=== PATIENT | male | born 1930 | race Caucasian/White ===

== ENCOUNTER 2018-03-17 20:19 | Emergency (ER) | payer OTHER ==
[~2018-03-17] VITALS: Ht 175.2 cm; Wt 90.7 kg
--- NOTE | ~2018-03-17 | EKG ---
[place], [place] ELECTROCARDIOGRAM REPORT NAME: EMMANUEL VELASQUEZ UNIT #: [id number] ROOM: DOCTOR: EPIPHANY DRAFT REPORT BIRTHDATE: [birth year] [facility] Test Date: 2018-03-17 Test Time: 20:48:40 Pat Name: EMMANUEL VELASQUEZ Department: Room: Gender: M Corset Maker: Alejandra Edward : 1930 Requested By: RANDEE KATHLEEN Order Number: [id number] Reading MD: Scott Davis MD Measurements Intervals [place] Rate: 63 P: 52 IL: 164 QRS: -16 QRSD: 82 T: 58 QT: 371 QTc: 380 Interpretive Statements Sinus rhythm Atrial premature complexes Consider left atrial enlargement Abnormal R-wave progression, late transition Left ventricular hypertrophy Compared to ECG 03/06/2018 19:42:18 Atrial premature complex(es) now present Left ventricular hypertrophy now present Electronically Signed On 03-20-2018 5:29:04 PST by Scott Davis MD CM:EKGRPT:ELECTROCARDIOGRAM REPORT [id number] RANDEE KAPOOR DRAFT REPORT RANDEE KATHLEEN DO
[~2018-03-17 20:19] MED LIST: AMLODIPINE BES2.5 MG PO; AMLODIPINE5 MG PO; ASPIR 8181 MG PO; B12-METHYL1000 MCG PO; BEE POLLEN PO; CARVEDILOL3.125 MG PO; CARVEDILOL6.25 MG PO; COQ10-VIT E 101 EACH PO; CRESTOR20 MG PO; CRESTOR5 MG PO; CYCLOBENZAPRINE5 MG PO; DONNATAL1 CA1 PO; ELIQUIS5 M1 PO; FISH OIL 10001000 MG PO; FLAGYL500 MG PO; KRILL OIL 3001 EACH PO; LEVAQUIN500 M1 PO; LEVOFLOXACIN500 MG PO; LIPITOR40 MG PO; MEGA RED; METOPROLOL25 MG PO; NEURONTIN300 MG PO; PERCOCET 325 MG1 TA2 PO; PROTONIX40 MG PO; SUNMARK OMEPRAZ20 M1 PO; SYNTHROID,LEVO25 MCG PO; VISTARIL25 MG PO; VITAMIN D1000 IU PO; VITAMIN D31000 IU PO; ZANTAC150 MG PO; ZOLOFT25 MG PO
[2018-03-17 20:22] VITALS: BP 157/83
[2018-03-17 20:51] LABS: BASO # 0.1 10*3/uL (0.0-0.1); BASO % 0.4 % (0.0-1.0); EOS # 0.7 10*3/uL (0.0-0.4); EOS % 5.4 % (1.0-4.0); HEMOGLOBIN 15.9 g/dl (14.0-18.0); LYMPH # 3.8 10*3/uL (1.3-4.4); LYMPH % 29.6 % (27.0-41.0); MEAN CELL VOLUME 94.9 fl (80.0-94.0); MEAN CORPUSCULAR HGB 32.1 pg (27.0-31.0); MEAN CORPUSCULAR HGB CONC 33.8 g/dl (33.0-37.0); MEAN PLATELET VOLUME 10.3 fl (9.6-12.3); MONO % 7.9 % (3.0-9.0); NEUT # 7.2 10*3/uL (2.3-7.9); NEUT % 56.3 % (47.0-73.0); PLATELET COUNT AUTOMATED 208 10*3/uL (130-400); RED BLOOD COUNT 4.95 10*6/uL (4.50-5.90); RED CELL DISTRI WIDTH 13.6 % (0-14.5); WHITE BLOOD COUNT 12.7 10*3/uL (4.8-10.8)
[2018-03-17 21:13] LABS: ALBUMIN 3.4 gm/dl (3.1-4.5); ALKALINE PHOSPHATASE 76 U/L (45-117); BUN 21 mg/dl (7-24); CHLORIDE 107 mmol/L (98-107); POTASSIUM 3.9 mmol/L (3.5-5.1); SGOT/AST 22 IU/L (3-35); SGPT/ALT 27 U/L (12-78); SODIUM 138 mmol/L (136-145); TOTAL PROTEIN 7.3 gm/dL (6.4-8.2)
[2018-03-17 21:16] LABS: BILIRUBIN NEGATIVE (NEGATIVE); BLOOD NEGATIVE (NEGATIVE); CLARITY CLEAR (CLEAR); COLOR YELLOW (YELLOW); GLUCOSE NEGATIVE (NEGATIVE); KETONE NEGATIVE (NEGATIVE); LEUKO ESTERASE NEGATIVE (NEGATIVE); NITRITE NEGATIVE (NEGATIVE); PH 6.5 (5.0-9.0); SPECIFIC GRAVITY <= 1.005 (1.005-1.030); UROBILINOGEN 0.2 E.U./dl (0.2-1.0)
[2018-03-17 21:16] LABS: TROPONIN I < 0.015 ng/ml (<0.045)
[2018-03-17 21:36] LABS: BACTERIA TRACE
[2018-03-17 21:52] LABS: ACT PARTIAL THROMBO TIME 22.3 SECONDS (20.8-31.5)
== END 2018-03-17 22:36 | disposition home or self-care (01) ==
LOC: ED 20:19
PROVIDERS: Student in an Organized Health Care Education/Training Program
DX: R11.0 Nausea (principal); R10.9 Unspecified abdominal pain; N18.3 Chronic kidney disease, stage 3 (moderate); E78.5 Hyperlipidemia, unspecified; Z88.2 Allergy status to sulfonamides; Z79.899 Other long term (current) drug therapy; Z86.711 Personal history of pulmonary embolism

== ENCOUNTER → 2018-04-18 | Outpatient (CLI) | payer OTHER | END | disposition home or self-care (01) | LOC: US 13:00 | DX: I26.99 Other pulmonary embolism without acute cor pulmonale (principal); Z86.711 Personal history of pulmonary embolism ==

== ENCOUNTER 2018-09-15 08:18 | Emergency (ER) | payer OTHER ==
[~2018-09-15] VITALS: Ht 175.2 cm; Wt 92.5 kg
--- NOTE | ~2018-09-15 | EKG ---
[place], [place] ELECTROCARDIOGRAM REPORT NAME: EMMANUEL VELASQUEZ UNIT #: [id number] ROOM: DOCTOR: ZOYA DRAFT REPORT BIRTHDATE: [birth year] [facility] Test Date: 2018-09-15 Test Time: 08:56:43 Pat Name: EMMANUEL VELASQUEZ Department: Room: Gender: Podiatric Assistant: : 1930 Requested By: MORGAN HARO Order Number: [id number] Reading MD: Arlette Romano MD Measurements Intervals [place] Rate: 68 P: 49 MN: 170 QRS: -18 QRSD: 87 T: 42 QT: 394 QTc: 420 Interpretive Statements Sinus rhythm Left ventricular hypertrophy Compared to ECG 07/28/2018 19:41:15 No significant changes Electronically Signed On 09-19-2018 12:02:58 PDT by Arlette Romano MD CM:EKGRPT:ELECTROCARDIOGRAM REPORT [id number] MORGAN KENNY DRAFT REPORT MORGAN HARO M.D.
[~2018-09-15 08:18] MED LIST changes: +ZANTAC 150150 MG PO
[2018-09-15 08:19] VITALS: BP 144/92
[2018-09-15 08:56] LABS: BASO # 0.1 10*3/uL (0.0-0.1); BASO % 0.4 % (0.0-1.0); EOS # 0.6 10*3/uL (0.0-0.4); EOS % 4.7 % (1.0-4.0); HEMATOCRIT 46.5 % (42.0-52.0); HEMOGLOBIN 15.5 g/dl (14.0-18.0); LYMPH # 3.1 10*3/uL (1.3-4.4); LYMPH % 25.5 % (27.0-41.0); MEAN CELL VOLUME 97.3 fl (80.0-94.0); MEAN CORPUSCULAR HGB 32.4 pg (27.0-31.0); MEAN CORPUSCULAR HGB CONC 33.3 g/dl (33.0-37.0); MEAN PLATELET VOLUME 10.4 fl (9.6-12.3); MONO # 0.9 10*3/uL (0.1-1.0); MONO % 7.1 % (3.0-9.0); NEUT # 7.4 10*3/uL (2.3-7.9); PLATELET COUNT AUTOMATED 176 10*3/uL (130-400); RED BLOOD COUNT 4.78 10*6/uL (4.50-5.90); RED CELL DISTRI WIDTH 13.9 % (0-14.5)
[2018-09-15 09:12] LABS: ALBUMIN 3.7 gm/dl (3.1-4.5); CREATININE 1.48 mg/dL (0.70-1.30); POTASSIUM 4.6 mmol/L (3.5-5.1); TOTAL PROTEIN 7.1 gm/dL (6.4-8.2)
[2018-09-15] MEDS ORDERED: ELIQUIS5 M1 PO (22:04)
[2018-09-15] MEDS ORDERED: COQ1050 MG PO (22:05)
[2018-10-23] MEDS ORDERED: ZOLOFT50 MG PO (14:02)
[2018-10-23] MEDS ORDERED: PROTONIX40 MG PO (14:03)
[2018-10-23] MEDS ORDERED: CARAFATE1 G1 PO (14:03)
[2018-10-23] MEDS ORDERED: CRESTOR40 M1 PO (14:04)
== END 2018-09-15 10:00 | disposition home or self-care (01) ==
LOC: ED 08:18
PROVIDERS: Emergency Medicine
DX: K29.70 Gastritis, unspecified, without bleeding (principal); E78.5 Hyperlipidemia, unspecified; N18.3 Chronic kidney disease, stage 3 (moderate); G62.9 Polyneuropathy, unspecified; Z79.899 Other long term (current) drug therapy; Z88.2 Allergy status to sulfonamides

== ENCOUNTER 2018-09-15 15:10 | Inpatient (IN) | payer OTHER ==
[~2018-09-15] VITALS: Ht 175.3 cm; Wt 99.4 kg
[2018-09-15] VITALS (7 sets, daily range): BP systolic 123–173; BP diastolic 67–91
[2018-09-15 20:22] LABS: BASO % 0.3 % (0.0-1.0); EOS # 0.4 10*3/uL (0.0-0.4); EOS % 3.1 % (1.0-4.0); HEMATOCRIT 47.1 % (42.0-52.0); HEMOGLOBIN 15.6 g/dl (14.0-18.0); LYMPH # 3.4 10*3/uL (1.3-4.4); LYMPH % 24.1 % (27.0-41.0); MEAN CELL VOLUME 95.7 fl (80.0-94.0); MEAN CORPUSCULAR HGB 31.7 pg (27.0-31.0); MEAN CORPUSCULAR HGB CONC 33.1 g/dl (33.0-37.0); MONO % 6.7 % (3.0-9.0); NEUT # 9.3 10*3/uL (2.3-7.9); NEUT % 65.4 % (47.0-73.0); PLATELET COUNT AUTOMATED 183 10*3/uL (130-400); RED BLOOD COUNT 4.92 10*6/uL (4.50-5.90); RED CELL DISTRI WIDTH 13.6 % (0-14.5); WHITE BLOOD COUNT 14.3 10*3/uL (4.8-10.8)
--- NOTE | 2018-09-15 20:27 | NUR ---
ATTEMPTED TO CALL TO MAKE NURSE AWARE OF ADMISSION
[2018-09-15 20:37] LABS: ALBUMIN 3.7 gm/dl (3.1-4.5); ALKALINE PHOSPHATASE 74 U/L (45-117); BUN 19 mg/dl (7-24); CHLORIDE 107 mmol/L (98-107); LIPASE 124 U/L (73-393); POTASSIUM 4.1 mmol/L (3.5-5.1); SGOT/AST 22 IU/L (3-35); SGPT/ALT 34 U/L (12-78); SODIUM 140 mmol/L (136-145); TOTAL PROTEIN 7.3 gm/dL (6.4-8.2)
--- NOTE | 2018-09-15 20:45 | NUR ---
A 88, admitted to 4E, under the services of GUILLERMO Chavez DO with a diagnosis of SIGMOID DIVERTICULOSIS, ABD PAIN. Chief complaint is C/O ABD PAIN WAS SEEN IN ER EARLIER TODAY AND HAD GI COCKTAIL AND SENT HOME ONLY TO RETURN LATER TONIGHT WITH RECURRECT ABD PAIN DENIES NAUSEA.. Patient arrived via stretcher from ER. Monitor applied. Initial assessment completed. patient in extreme pain just from moving from cart to bed. HAD TO DELAY COMPLETING ADMISSION BECAUSE PATIENT EXTREME PAIN. GUILLERMO CHAVEZ DO notified of admission to the unit. JHONATAN LEONARDO J
--- NOTE | 2018-09-15 20:59 | NUR ---
CALLED DR. SALOMON AND NOTIFIED HIM PATIENT IN EXTREME PAIN, ROCKING IN BED, CAN'T SIT STILL SAYING "IT'S MY ULCER, I CAN'T TAKE THIS! YOU GOT TO DO SOMETHING!" ORDER BEING PUT IN FOR GI COCTAIL AND MORE DILAUDID.
--- NOTE | 2018-09-15 21:15 | NUR ---
PULLED MEDICATION FROM [employer] FOR PATIENTS PAIN WHEN DAUGHTER CAME BACK TO DESK CRYING STATED "HE'S NEVER BEEN IN SO MUCH PAIN. HE BACK THERE WANTING TO !" CALLED DR. SALOMON AND NOTIFIED HIM OF PATIENT CONDITION AND DAUGHTER WANTING DOCTOR TO COME SEE PATIENT. MEDICATION TAKEN BACK TO ROOM AND PATIENT WAS LAYING AND SITTING STANDING, SCREAMING SHAKING HIS FISTS AND CRYING "GOD JUST TAKE ME NOW I CAN'T STAND IT" AND PATIENT THREW HIMSELF DOWN ON THE BED AND CRYING AND GRABBING STOMACHE. HAD TO GET PATIENT TO LOOK AT ME AND DRINK THE MEDICATION WITH SOME PROMPTING. TALKED SOFTLY AND CAMLY TO PATIENT TO HELP HIM CALM DOWN. FINALLY PATIENT CALMED AND BEGAN TO SPEAK RATIONALLY. VITAL SIGNS TAKEN HR 109 BP 161/91 PT. PAIN IN MID STERNAL EPIGASTRIC PAIN SUBSIDED AND PATIENT WAS ABLE TO LAY BACK IN BED AND CALM. DR. SALOMON CAME TO ROOM AND WAS NOTIFIED OF PATIENT BEHAVIOR. FEEL PATIENT HAD REACTION TO DILAUDID AND WAS NOT GIVEN THIS FOR PAIN. LISTED DILAUDID ALLERGY. TOOK VITAL SIGNS AGAIN AFTER PATIENT CALMED AND HR 70 AND BP 123/67. PT. RESTING QUIETLY IN BED.
[2018-09-15] MEDS ORDERED: ELIQUIS5 M1 PO (22:04)
[2018-09-15] MEDS ORDERED: COQ1050 MG PO (22:05)
[2018-09-16] VITALS: BP 104/51
[2018-09-16 05:28] LABS: BASO % 0.2 % (0.0-1.0); EOS # 0.4 10*3/uL (0.0-0.4); EOS % 3.1 % (1.0-4.0); HEMATOCRIT 44.8 % (42.0-52.0); HEMOGLOBIN 14.9 g/dl (14.0-18.0); LYMPH # 3.2 10*3/uL (1.3-4.4); LYMPH % 26.2 % (27.0-41.0); MEAN CELL VOLUME 97.4 fl (80.0-94.0); MEAN CORPUSCULAR HGB 32.4 pg (27.0-31.0); MEAN CORPUSCULAR HGB CONC 33.3 g/dl (33.0-37.0); MEAN PLATELET VOLUME 10.2 fl (9.6-12.3); MONO # 0.9 10*3/uL (0.1-1.0); MONO % 7.6 % (3.0-9.0); NEUT # 7.7 10*3/uL (2.3-7.9); NEUT % 62.6 % (47.0-73.0); PLATELET COUNT AUTOMATED 161 10*3/uL (130-400); RED CELL DISTRI WIDTH 13.8 % (0-14.5); WHITE BLOOD COUNT 12.3 10*3/uL (4.8-10.8)
[2018-09-16 05:48] LABS: BUN 19 mg/dl (7-24); CHLORIDE 108 mmol/L (98-107); PHOSPHOROUS 3.4 mg/dL (2.5-4.9); POTASSIUM 4.4 mmol/L (3.5-5.1); SODIUM 143 mmol/L (136-145)
[2018-09-16 08:00] VITALS: BP 136/66
--- NOTE | 2018-09-16 08:32 | NUR ---
IN TO SEE PATIENT.
[2018-09-16 08:51] LABS: VITAMIN D, 25-HYDROXY 39.9 ng/mL (30-100)
--- NOTE | 2018-09-16 09:12 | NUR ---
IV PHENERGAN INFUSING PER ORDER FOR C/O NAUSEA. WILL MONITOR EFFECTIVENESS.
--- NOTE | 2018-09-16 09:20 | NUR ---
NOTIFIED OF CONSULT.
--- NOTE | 2018-09-16 10:15 | NUR ---
IV PHENERGAN EFFECTIVE AT THIS TIME. WILL CONTINUE TO MONITOR.
[2018-09-16 12:00] VITALS: BP 119/66
[2018-09-16 16:00] VITALS: BP 102/55
--- NOTE | 2018-09-16 17:49 | NUR ---
PATIENT CONTINUES TO REST QUIETLY. NO VOICED COMPLAINTS. DENIES ANY ABD PAIN. DENIES ANY N/V. WILL CONTINUE TO MONITOR.
[2018-09-16 20:00] VITALS: BP 99/51
[2018-09-16 21:19] VITALS: BP 106/60
[2018-09-17] VITALS: BP 94/50
[2018-09-17 06:16] LABS: BASO % 0.3 % (0.0-1.0); EOS # 0.6 10*3/uL (0.0-0.4); EOS % 5.1 % (1.0-4.0); HEMATOCRIT 42.2 % (42.0-52.0); HEMOGLOBIN 13.8 g/dl (14.0-18.0); LYMPH # 3.1 10*3/uL (1.3-4.4); MEAN CELL VOLUME 97.9 fl (80.0-94.0); MEAN CORPUSCULAR HGB CONC 32.7 g/dl (33.0-37.0); MEAN PLATELET VOLUME 10.8 fl (9.6-12.3); MONO % 8.8 % (3.0-9.0); NEUT # 6.7 10*3/uL (2.3-7.9); NEUT % 58.5 % (47.0-73.0); PLATELET COUNT AUTOMATED 151 10*3/uL (130-400); RED BLOOD COUNT 4.31 10*6/uL (4.50-5.90); RED CELL DISTRI WIDTH 13.9 % (0-14.5); WHITE BLOOD COUNT 11.4 10*3/uL (4.8-10.8)
[2018-09-17 06:37] LABS: ALBUMIN 3.2 gm/dl (3.1-4.5); CREATININE 1.55 mg/dL (0.70-1.30); POTASSIUM 3.7 mmol/L (3.5-5.1); TOTAL PROTEIN 5.8 gm/dL (6.4-8.2)
[2018-09-17 06:59] VITALS: BP 118/78
[2018-09-17 08:00] VITALS: BP 104/66
--- NOTE | 2018-09-17 09:00 | NUR ---
Newspaper Publisher in to talk to patient. Patient states lives at home with . There are few steps in the home. Physician: resident clinic [facility]acy: [facility] services: none Patient's level of ADLs: MINIMAL ASSIST Patient has working utilities: all working DME: Follow-up physician's appointment after d/c: will be made by hospitalist nurse director upon discharge Does patient want to access PORTAL?: no Discharge plan discussed with patient, patient lives at home with , he is using a cane for ambulation, patient states he will be going home when able and denies any home needs, case management will follow. DOLLY DANIELSON
--- NOTE | 2018-09-17 10:23 | NUR ---
DR RAMIREZ CALLED WITH CRP RESULT REQUESTED- NO ANSWER, WILL RETRY LATER.
--- NOTE | 2018-09-17 11:10 | NUR ---
CALLED INTO ROOM BY PATIENT. IV INFILTRATED DURING CIPRO INFUSION. RIGHT HAND EDEMA AND RED. IV DISCONTINUED AND ICE APPLIED. WILL MONITOR.
--- NOTE | 2018-09-17 11:20 | NUR ---
PATIENT REFUSES TO HAVE NEW IV PLACED.
--- NOTE | 2018-09-17 11:25 | NUR ---
DR RIBEIRO CALLED AND MADE AWARE OF IV INFILTRATION AND PATIENT REFUSING A NEW IV. OK NOT TO INSERT AN IV AT THIS TIME.
[2018-09-17 12:00] VITALS: BP 113/60
--- NOTE | 2018-09-17 12:26 | NUR ---
SPOKE WITH DR RAMIREZ ABOUT PATIENT AND CRP LEVEL ORDERED. WANT TO DO COLO TODAY. PREP WITH FLEETS AND TAP WATER ENEMA.
--- NOTE | 2018-09-17 12:40 | NUR ---
SPOKE WITH PATIENT ABOUT HAVING A COLOSCOPY DONE. PATIENT REFUSES TO HAVE PROCEDURE PERFORMED, AND ALSO TO HAVE EGD PERFORMED.
--- NOTE | 2018-09-17 14:10 | NUR ---
PATIENTS HAND STILL EDEMADOUS, BUT SMALLER THAN IT WAS. NO LONGER RED. PATIENT STILL HAS ICE ON HAND. CONTINUES TO REFUSE A NEW IV, EGD, AND COLO. WILL MONITOR.
--- NOTE | 2018-09-17 14:56 | NUR ---
CALLED DR RIBEIRO, PATIENT WANTS DISCHARGED AND TO FOLLOW UP WITH HIS GI DR, DR KOENIG. PATIENT CONTINUES TO REFUSE IV,EGD, AND COLO. WAITING FOR CALL BACK.
--- NOTE | 2018-09-17 15:07 | NUR ---
SPOKE WITH PATIENT ABOUT DR NOT DISCHARGING HIM BUT THAT HE IS ABLE TO LEAVE AMA. PATIENT DOES NOT WANT TO DO THAT. STATES HE WILL FOLLOW UP WITH DR KOENIG OUTPATIENT. AGREEABLE FOR NEW IV AND ANTIBIOTICS BUT STILL REFUSING EGD AND COLO. WILL FOLLOW UP WITH
--- NOTE | 2018-09-17 15:11 | NUR ---
PATIENT STATES THAT HE DOES NOT WANT TO SIGN OUT AMA AND BE STUCK PAYING THE HOSPITAL BILL. IS AGREEABLE TO IV ANF ANTIBIOTICS BUT STILL REFUSING EGD AND COLO. DR RIBEIRO CALLED- SHE WILL BE UP TO SPEAK WITH PATIENT.
[2018-09-17 16:00] VITALS: BP 103/56
[2018-09-17 20:00] VITALS: BP 113/62
[2018-09-18] VITALS: BP 108/64
--- NOTE | 2018-09-18 04:00 | NUR ---
PT ASLEEP IN BED AT THIS TIME WITH NO S/S OF PAIN OR DISTRESS. RESPIRATIONS EASY AND NONLABORED. SAFETY MEASURES IN PLACE. WILL CONTINUE TO MONITOR PT.
[2018-09-18 06:19] LABS: BASO # 0.1 10*3/uL (0.0-0.1); BASO % 0.6 % (0.0-1.0); EOS # 0.8 10*3/uL (0.0-0.4); EOS % 7.9 % (1.0-4.0); HEMATOCRIT 42.6 % (42.0-52.0); HEMOGLOBIN 13.8 g/dl (14.0-18.0); LYMPH # 2.5 10*3/uL (1.3-4.4); LYMPH % 26.1 % (27.0-41.0); MEAN CELL VOLUME 97.7 fl (80.0-94.0); MEAN CORPUSCULAR HGB 31.7 pg (27.0-31.0); MEAN CORPUSCULAR HGB CONC 32.4 g/dl (33.0-37.0); MEAN PLATELET VOLUME 10.2 fl (9.6-12.3); MONO # 0.9 10*3/uL (0.1-1.0); MONO % 9.4 % (3.0-9.0); NEUT # 5.3 10*3/uL (2.3-7.9); NEUT % 55.7 % (47.0-73.0); PLATELET COUNT AUTOMATED 148 10*3/uL (130-400); RED BLOOD COUNT 4.36 10*6/uL (4.50-5.90); RED CELL DISTRI WIDTH 13.8 % (0-14.5); WHITE BLOOD COUNT 9.5 10*3/uL (4.8-10.8)
[2018-09-18 06:53] LABS: CREATININE 1.49 mg/dL (0.70-1.30); POTASSIUM 3.8 mmol/L (3.5-5.1)
--- NOTE | 2018-09-18 07:30 | NUR ---
May convert IV metronidazole to PO if clinically feasible -- all criteria met. Thanks, [place] Vyas, PharmD, [facility]
[2018-09-18 08:00] VITALS: BP 132/78
--- NOTE | 2018-09-18 09:00 | NUR ---
case management visits with patient, patient up ambulating in room per self. patient states he will be going home when able and denies any home needs
--- NOTE | 2018-09-18 11:43 | NUR ---
PHYSICAL THERAPY PAtient to be discharged this date. Thank you for this referral. Dulce Scott,PT
--- NOTE | 2018-09-18 12:05 | NUR ---
DISCHARGE INSTRUCTIONS REVIEWED WITH PATIENT AND . HEPLOCK DISCONTINUED. FOLLOW UP CARE DISCUSSED. PT TRANSPORTED OFF THE FLOOR VIA WHEELCHAIR TO PRIVATE CAR.
--- NOTE | 2018-09-18 15:03 | NUR ---
Patient discharged this date before OT evaluation could be completed. Thank you. Nelia Mccray OTR/L
[2018-10-23] MEDS ORDERED: ZOLOFT50 MG PO (14:02)
[2018-10-23] MEDS ORDERED: PROTONIX40 MG PO (14:03)
[2018-10-23] MEDS ORDERED: CARAFATE1 G1 PO (14:03)
[2018-10-23] MEDS ORDERED: CRESTOR40 M1 PO (14:04)
== END 2018-09-18 12:05 | disposition home or self-care (01) | DRG 392 ==
LOC: ED 15:10 → 4E 20:05 → EDHOLD 20:05 → 4E 20:27
PROVIDERS: Emergency Medicine Emergency Medical Services; Internal Medicine; ADMIT Emergency Medicine
DX: K52.9 Noninfective gastroenteritis and colitis, unspecified (principal); K27.9 Peptic ulcer, site unspecified, unspecified as acute or chronic, without hemorrhage or perforation; K57.30 Diverticulosis of large intestine without perforation or abscess without bleeding; E78.5 Hyperlipidemia, unspecified; K29.50 Unspecified chronic gastritis without bleeding; D72.825 Bandemia; R73.03 Prediabetes; I70.90 Unspecified atherosclerosis; G62.9 Polyneuropathy, unspecified; Z53.29 Procedure and treatment not carried out because of patient's decision for other reasons; N18.3 Chronic kidney disease, stage 3 (moderate); Z86.711 Personal history of pulmonary embolism; Z88.8 Allergy status to other drugs, medicaments and biological substances; Z88.6 Allergy status to analgesic agent; Z88.2 Allergy status to sulfonamides; Z09 Encounter for follow-up examination after completed treatment for conditions other than malignant neoplasm; Z95.5 Presence of coronary angioplasty implant and graft; I25.2 Old myocardial infarction; Z95.0 Presence of cardiac pacemaker; Z82.49 Family history of ischemic heart disease and other diseases of the circulatory system; Z79.899 Other long term (current) drug therapy

== ENCOUNTER → 2018-10-26 | Day surgery (SDC) | payer OTHER ==
[~2018-10-26] VITALS: Ht 175.2 cm; Wt 90.7 kg
[~2018-10-26] MED LIST changes: +CARAFATE1 G1 PO; +COQ1050 MG PO; +CRESTOR40 M1 PO; +ZOLOFT50 MG PO
--- NOTE | ~2018-10-26 | O ---
[place], [place] OPERATIVE NOTE NAME: EMMANUEL VELASQUEZ [facility] #: [id number] UNIT #: [id number] ROOM: DOCTOR: RAUL KOENIG MD BIRTHDATE: [birth year] DOS: 10/26/2018 PROCEDURE: Esophagogastroduodenoscopy and biopsy. INDICATION: Abdominal pain. Informed consent was obtained from the patient after indication of procedure, the alternatives and potential complications were explained to him. PROCEDURE MEDICATION: Sedation was administered by Anesthesiology Department. Scope used was Olympus diagnostic adult upper endoscope GIF-180, depth of insertion was to the descending duodenum. FINDINGS: After adequate sedation, the patient was placed in left lateral decubitus position, scope was introduced under direct visualization through the upper esophageal sphincter into the esophagus. Esophageal mucosa appeared normal with no ulcerations or strictures. Lower esophageal sphincter was identified at 38 cm from incisors, normal appearing Z line. Stomach was then intubated. Gastric mucosa inspected. Moderate severe gastritis was noted, more so in the antrum and a JOSETTE test was performed from the antrum and biopsy. Retroflexed views in the fundus were unremarkable. The pylorus was intubated easily. The duodenal bulb and descending duodenum were within normal range. Scope was then withdrawn after the stomach was decompressed. The patient tolerated the procedure well. IMPRESSION: 1. Gastritis, JOSETTE test performed. 2. Normal upper GI tract, otherwise. PLAN: We will review the JOSETTE test results, treat the patient accordingly. Office followup will be scheduled in 2-3 weeks. RAUL KOENIG MD CM:OPRECORD:OPERATIVE NOTE [id number] RAUL KOENIG MD 10/26/18 1308 interface
[2018-10-26 07:50] VITALS: BP 121/63
[2018-10-26 09:03] VITALS: BP 102/45
[2018-10-26 09:15] VITALS: BP 97/58
[2018-10-26 09:33] VITALS: BP 114/66
== END | disposition home or self-care (01) ==
LOC: SDC 10-25 01:24
DX: K29.70 Gastritis, unspecified, without bleeding (principal); I10 Essential (primary) hypertension; I25.10 Atherosclerotic heart disease of native coronary artery without angina pectoris; I25.2 Old myocardial infarction; Z95.0 Presence of cardiac pacemaker; Z88.2 Allergy status to sulfonamides; Z88.8 Allergy status to other drugs, medicaments and biological substances; Z79.899 Other long term (current) drug therapy; Z98.890 Other specified postprocedural states

== ENCOUNTER 2019-03-14 14:39 | Emergency (ER) | payer OTHER ==
[~2019-03-14] VITALS: Wt 90.7 kg
[2019-03-14 15:24] LABS: BASO # 0.1 10*3/uL (0.0-0.1); BASO % 0.5 % (0.0-1.0); EOS % 8.1 % (1.0-4.0); HEMATOCRIT 48.5 % (42.0-52.0); HEMOGLOBIN 15.9 g/dl (14.0-18.0); LYMPH # 3.1 10*3/uL (1.3-4.4); LYMPH % 25.7 % (27.0-41.0); MEAN CELL VOLUME 96.2 fl (80.0-94.0); MEAN CORPUSCULAR HGB 31.5 pg (27.0-31.0); MEAN CORPUSCULAR HGB CONC 32.8 g/dl (33.0-37.0); MEAN PLATELET VOLUME 10.5 fl (9.6-12.3); MONO % 8.5 % (3.0-9.0); NEUT # 6.9 10*3/uL (2.3-7.9); NEUT % 56.9 % (47.0-73.0); PLATELET COUNT AUTOMATED 170 10*3/uL (130-400); RED BLOOD COUNT 5.04 10*6/uL (4.50-5.90); RED CELL DISTRI WIDTH 14.3 % (0-14.5); WHITE BLOOD COUNT 12.1 10*3/uL (4.8-10.8)
[2019-03-14 15:45] LABS: ALBUMIN 3.6 gm/dl (3.1-4.5); ALKALINE PHOSPHATASE 68 U/L (45-117); BUN 15 mg/dl (7-24); CHLORIDE 111 mmol/L (98-107); CREATININE 1.54 mg/dL (0.70-1.30); POTASSIUM 4.7 mmol/L (3.5-5.1); SGOT/AST 21 IU/L (3-35); SGPT/ALT 30 U/L (12-78); SODIUM 144 mmol/L (136-145); TOTAL PROTEIN 7.2 gm/dL (6.4-8.2)
[2019-03-14 15:46] LABS: TROPONIN I < 0.015 ng/ml (<0.045)
[2019-03-14 15:48] VITALS: BP 140/116
[2019-03-14 16:33] LABS: BILIRUBIN NEGATIVE (NEGATIVE); BLOOD NEGATIVE (NEGATIVE); CLARITY CLEAR (CLEAR); COLOR YELLOW (YELLOW); GLUCOSE NEGATIVE (NEGATIVE); KETONE NEGATIVE (NEGATIVE); LEUKO ESTERASE NEGATIVE (NEGATIVE); NITRITE NEGATIVE (NEGATIVE); SPECIFIC GRAVITY <= 1.005 (1.005-1.030); UROBILINOGEN 0.2 E.U./dl (0.2-1.0)
[2019-03-14] MEDS ORDERED: PLAVIX75 M1 PO (16:55)
[2019-03-14 17:04] LABS: INTERNATIONAL NORM RATIO 0.9 (2.0-3.5)
== END 2019-03-14 17:00 | disposition home or self-care (01) ==
LOC: ED 14:39
PROVIDERS: Emergency Medicine
DX: G45.9 Transient cerebral ischemic attack, unspecified (principal); I10 Essential (primary) hypertension; I25.2 Old myocardial infarction; E78.5 Hyperlipidemia, unspecified; G62.9 Polyneuropathy, unspecified; I12.9 Hypertensive chronic kidney disease with stage 1 through stage 4 chronic kidney disease, or unspecified chronic kidney disease; N18.3 Chronic kidney disease, stage 3 (moderate); Z88.8 Allergy status to other drugs, medicaments and biological substances; Z88.2 Allergy status to sulfonamides; Z88.6 Allergy status to analgesic agent; Z79.899 Other long term (current) drug therapy; Z95.0 Presence of cardiac pacemaker

== ENCOUNTER → 2019-09-04 | Outpatient (CLI) | payer OTHER ==
[~2019-09-04] MED LIST changes: +PLAVIX75 M1 PO
[2019-09-04 13:38] LABS: HEMATOCRIT 47.7 % (42.0-52.0); MEAN CELL VOLUME 97.1 fl (80.0-94.0); MEAN CORPUSCULAR HGB 31.6 pg (27.0-31.0); MEAN CORPUSCULAR HGB CONC 32.5 g/dl (33.0-37.0); MEAN PLATELET VOLUME 10.3 fl (9.6-12.3); RED BLOOD COUNT 4.91 10*6/uL (4.50-5.90); RED CELL DISTRI WIDTH 14.5 % (0-14.5); WHITE BLOOD COUNT 14.3 10*3/uL (4.8-10.8)
== END | disposition home or self-care (01) ==
LOC: LAB 11:26 → US 11:26
PROVIDERS: Nurse Practitioner Family
DX: I12.9 Hypertensive chronic kidney disease with stage 1 through stage 4 chronic kidney disease, or unspecified chronic kidney disease (principal); N18.9 Chronic kidney disease, unspecified; I73.9 Peripheral vascular disease, unspecified; R73.01 Impaired fasting glucose; D72.829 Elevated white blood cell count, unspecified

== ENCOUNTER → 2019-09-19 | Outpatient (CLI) | payer OTHER | END | disposition home or self-care (01) | LOC: RAD 13:12 | DX: D72.829 Elevated white blood cell count, unspecified (principal) ==

== ENCOUNTER 2019-12-09 09:23 | Observation (INO) | payer OTHER ==
[2019-12-09] VITALS (7 sets, daily range): BP systolic 101–165; BP diastolic 55–76
[~2019-12-09] VITALS: Ht 175.3 cm; Wt 91.6 kg
[2019-12-09 09:53] LABS: BASO # 0.1 10*3/uL (0.0-0.1); BASO % 0.4 % (0.0-1.0); EOS # 0.9 10*3/uL (0.0-0.4); EOS % 7.2 % (1.0-4.0); HEMATOCRIT 48.2 % (42.0-52.0); LYMPH # 2.6 10*3/uL (1.3-4.4); LYMPH % 21.9 % (27.0-41.0); MEAN CELL VOLUME 92.7 fl (80.0-94.0); MEAN CORPUSCULAR HGB 30.6 pg (27.0-31.0); MEAN PLATELET VOLUME 10.3 fl (9.6-12.3); MONO # 0.8 10*3/uL (0.1-1.0); MONO % 6.9 % (3.0-9.0); NEUT # 7.4 10*3/uL (2.3-7.9); NEUT % 63.1 % (47.0-73.0); PLATELET COUNT AUTOMATED 173 10*3/uL (130-400); RED CELL DISTRI WIDTH 13.9 % (0-14.5); WHITE BLOOD COUNT 11.8 10*3/uL (4.8-10.8)
[2019-12-09 10:03] LABS: ACT PARTIAL THROMBO TIME 26.5 SECONDS (20.0-32.1)
[2019-12-09 10:09] LABS: ALBUMIN 3.6 gm/dl (3.1-4.5); ALKALINE PHOSPHATASE 64 U/L (45-117); BUN 23 mg/dl (7-24); CHLORIDE 108 mmol/L (98-107); LIPASE 100 U/L (73-393); POTASSIUM 3.8 mmol/L (3.5-5.1); SGOT/AST 22 IU/L (3-35); SGPT/ALT 34 U/L (12-78); SODIUM 140 mmol/L (136-145); TOTAL PROTEIN 7.1 gm/dL (6.4-8.2); TROPONIN I < 0.015 ng/ml (<0.045)
--- NOTE | 2019-12-09 13:30 | NUR ---
A 89, admitted to 5E, under the services of ANABELL Rojas DO with a diagnosis of VERTIGO. Chief complaint is DIZZY. Patient arrived via stretcher from ER. Monitor applied. Initial assessment completed. Vital signs taken and recorded. ANABELL ROJAS DO notified of admission to the unit. Orders received. See assessment for past medical history, medications and allergies. Patient and/or family oriented to unit. [facility] visitation policy reviewed. Clothing/patient valuable form completed. RUSTY GAN
[2019-12-09] MEDS ORDERED: ZOLOFT50 MG PO (14:24)
--- NOTE | 2019-12-09 14:28 | NUR ---
PT MED REC UP TO DATE PER PT . DR ROBERSON NOTIFIED
--- NOTE | 2019-12-09 15:30 | NUR ---
PT RESTING IN BED. RESPS EASY AND NON LABORED. NO S/S OF DISTRESS NOTED.VSS. WHITE BOARD UPDATED. WILL CONTINUE TO MONITOR. CALL LIGHT WITHIN REACH.
--- NOTE | 2019-12-09 16:11 | NUR ---
ORTHOS 114/60, 82 BPM LAYING 138/74, 93 BPM SITTING 108/54, 90BPM CORDELL
--- NOTE | 2019-12-09 16:13 | NUR ---
DR ROBERSON NOTIFIED OF ORTHO RESULTS. NO NEW ORDERS AT THIS TIME.
[2019-12-09 16:27] LABS: BILIRUBIN NEGATIVE; BLOOD NEGATIVE (NEGATIVE); CLARITY CLEAR (CLEAR); COLOR YELLOW (YELLOW); GLUCOSE NEGATIVE; KETONE NEGATIVE; LEUKO ESTERASE NEGATIVE (NEGATIVE); NITRITE NEGATIVE (NEGATIVE); PH 7.5 (4.5-8.0); UROBILINOGEN 0.2 E.U./dl (0.0-1.0)
[2019-12-09 16:30] LABS: EPITHELIAL CELLS 0-2; RBC 0-2 rbc/hpf (0-2); WBC 0-2 wbc/hpf (0-5)
[2019-12-10] VITALS: BP 108/57
--- NOTE | 2019-12-10 01:24 | NUR ---
SPOKE WITH DR DE LA O REGARDING PT REQUEST FOR "SOMETHING TO HELP WITH DIZZINESS"
[2019-12-10 06:44] LABS: BASO # 0.1 10*3/uL (0.0-0.1); BASO % 0.5 % (0.0-1.0); EOS # 0.9 10*3/uL (0.0-0.4); EOS % 7.5 % (1.0-4.0); HEMATOCRIT 45.4 % (42.0-52.0); LYMPH # 2.7 10*3/uL (1.3-4.4); LYMPH % 22.8 % (27.0-41.0); MEAN CELL VOLUME 94.6 fl (80.0-94.0); MEAN CORPUSCULAR HGB 30.6 pg (27.0-31.0); MEAN CORPUSCULAR HGB CONC 32.4 g/dl (33.0-37.0); MEAN PLATELET VOLUME 10.5 fl (9.6-12.3); MONO % 8.1 % (3.0-9.0); NEUT # 7.2 10*3/uL (2.3-7.9); NEUT % 60.7 % (47.0-73.0); PLATELET COUNT AUTOMATED 164 10*3/uL (130-400); RED CELL DISTRI WIDTH 13.9 % (0-14.5); WHITE BLOOD COUNT 11.8 10*3/uL (4.8-10.8)
[2019-12-10 07:27] LABS: CHLORIDE 114 mmol/L (98-107); POTASSIUM 4.7 mmol/L (3.5-5.1); SODIUM 144 mmol/L (136-145)
--- NOTE | 2019-12-10 07:30 | NUR ---
PHYSICAL THERAPY Screen and PT eval received will follow thank you Cielo Tucker PT
--- NOTE | 2019-12-10 07:30 | NUR ---
PT RESTING IN BED. RESPS EASY AND NON LABORED. NO S/S OF DISTRESS NOTED. VSS. WHITE BOARD UPDATED. POC DISCUSSED W PT. A/O X3. PT C/O DIZZINESS W CHANGE OF POSITION. WILL CONTINUE TO MONITOR. BED ALRM ON . CALL LIGHT WITHIN REACH.
--- NOTE | 2019-12-10 07:31 | NUR ---
Occupational therapy order and nursing screen received. Will follow up with the patient for completion of an OT evaluation. Thank you. Adriana Barnes, OTR/L
[2019-12-10 07:42] LABS: ACT PARTIAL THROMBO TIME 26.4 SECONDS (20.0-32.1); ALBUMIN 3.2 gm/dl (3.1-4.5); ALKALINE PHOSPHATASE 58 U/L (45-117); BUN 20 mg/dl (7-24); CHOLESTEROL 122 mg/dL (<200); CREATININE 1.28 mg/dL (0.70-1.30); HDL CHOLESTEROL 45 mg/dl (40-60); LDL CHOLESTEROL 54 mg/dL (9-159); SGOT/AST 22 IU/L (3-35); SGPT/ALT 35 U/L (12-78); TOTAL PROTEIN 6.5 gm/dL (6.4-8.2); TRIGLYCERIDES 117 mg/dl (<150); VLDL CHOLESTEROL 23 mg/dL (6-40)
[2019-12-10 08:00] VITALS: BP 140/75
--- NOTE | 2019-12-10 08:30 | NUR ---
Management Trainee Marketing in to talk to patient. Patient states lives at home with his . There are 0 steps in the home. There is a chair lift. Physician: Lea Haider Pharmacy: [facility] Home health services: none Patient's level of ADLs: MINIMAL ASSIST Patient has working utilities: yes DME: cane Follow-up physician's appointment after d/c: will be made by the hospitalist nurse director upon discharge Does patient want to access PORTAL?: no Discharge plan discussed with patient. He lives at home with his . He is independent in his ADLs and ambulates with a cane. Discussed home health care services and he declines. CM will continue to follow for any discharge planning needs. When medically stable he will be discharged to home. He states his daughter will provide transportation on discharge. SHRUTI LAW
--- NOTE | 2019-12-10 11:03 | NUR ---
ORTHOS: 116/64, 80 BPM 132/70, 90 BPM, 112/60, 92 BPM
[2019-12-10 12:00] VITALS: BP 121/59
[2019-12-10] MEDS ORDERED: CYCLOBENZAPRINE10 MG PO (14:10)
[2019-12-10 16:00] VITALS: BP 120/60
--- NOTE | 2019-12-10 16:15 | NUR ---
Discharge instructions reviewed with patient/family. Patient receptive and verbalizes understanding. Follow-up care arranged. Written instructions given to patient/family. KALEB MCPHERSON The Discharge Plan/Instructions have been completed. Hep Lock discontinued. Site asymptomatic. Pressure applied. Sterile dressing applied. KALEB MCPHERSON
== END 2019-12-10 16:15 | disposition home or self-care (01) ==
LOC: ED 09:23 → 5E 11:30 → EDHOLD 11:30 → 5E 12:00
PROVIDERS: Emergency Medicine; Family Medicine; ADMIT Internal Medicine; ATTEND Internal Medicine
DX: R42 Dizziness and giddiness (principal); R26.81 Unsteadiness on feet; D72.829 Elevated white blood cell count, unspecified; E87.8 Other disorders of electrolyte and fluid balance, not elsewhere classified; R73.9 Hyperglycemia, unspecified; E83.41 Hypermagnesemia; J18.9 Pneumonia, unspecified organism; I12.9 Hypertensive chronic kidney disease with stage 1 through stage 4 chronic kidney disease, or unspecified chronic kidney disease; N18.3 Chronic kidney disease, stage 3 (moderate); K57.90 Diverticulosis of intestine, part unspecified, without perforation or abscess without bleeding; E78.5 Hyperlipidemia, unspecified; I25.10 Atherosclerotic heart disease of native coronary artery without angina pectoris; Z95.0 Presence of cardiac pacemaker

== ENCOUNTER → 2020-01-08 | Outpatient (CLI) | payer OTHER ==
[~2020-01-08] MED LIST changes: +CYCLOBENZAPRINE10 MG PO
== END | disposition home or self-care (01) ==
LOC: RAD 10:31
PROVIDERS: ATTEND Nurse Practitioner Family
DX: M47.812 Spondylosis without myelopathy or radiculopathy, cervical region (principal); M25.78 Osteophyte, vertebrae; F41.9 Anxiety disorder, unspecified

== ENCOUNTER 2020-12-01 07:00 | Inpatient (IN) | payer OTHER ==
[~2020-12-01] VITALS: Wt 86.2 kg
[2020-12-01 07:08] VITALS: BP 138/78
[2020-12-01 08:21] LABS: HEMATOCRIT 46.9 % (42.0-52.0); MEAN CELL VOLUME 92.1 fl (80.0-94.0); MEAN CORPUSCULAR HGB 31.8 pg (27.0-31.0); MEAN CORPUSCULAR HGB CONC 34.5 g/dl (33.0-37.0); MEAN PLATELET VOLUME 10.4 fl (9.6-12.3); PLATELET COUNT AUTOMATED 154 10*3/uL (130-400); RED BLOOD COUNT 5.09 10*6/uL (4.50-5.90); RED CELL DISTRI WIDTH 14.6 % (0-14.5); WHITE BLOOD COUNT 19.4 10*3/uL (4.8-10.8)
[2020-12-01 08:38] LABS: ALBUMIN 3.4 gm/dl (3.1-4.5); ALKALINE PHOSPHATASE 71 U/L (45-117); BUN 13 mg/dl (7-24); CHLORIDE 108 mmol/L (98-107); CREATININE 1.14 mg/dL (0.70-1.30); LIPASE 494 U/L (73-393); POTASSIUM 3.9 mmol/L (3.5-5.1); SGOT/AST 16 IU/L (3-35); SGPT/ALT 27 U/L (12-78); SODIUM 139 mmol/L (136-145); TOTAL PROTEIN 7.6 gm/dL (6.4-8.2)
[2020-12-01 08:41] LABS: TOTAL CELLS COUNTED 100 #CELLS; TROPONIN I < 0.015 ng/ml (<0.045)
[2020-12-01 08:42] LABS: PLATELET SUFFICIENCY NORMAL (NORMAL)
[2020-12-01 10:19] LABS: BILIRUBIN Negative (Negative); BLOOD Negative (Negative); CLARITY Clear (Clear); COLOR Yellow (Yellow); GLUCOSE 2+ (Negative); KETONE Negative (Negative); LEUKO ESTERASE Negative (Negative); NITRITE Negative (Negative); PH 7.5 (4.5-8.0)
[2020-12-01 10:52] LABS: BACTERIA TRACE; FINE GRANULAR CAST 0-2; HYALINE CAST 0-2
[2020-12-01 16:39] VITALS: BP 149/78
== END 2020-12-01 21:12 | disposition left against medical advice (07) | DRG 439 ==
LOC: ED 07:00 → EDHOLD 11:02
PROVIDERS: Emergency Medicine; ADMIT Student in an Organized Health Care Education/Training Program; ATTEND Student in an Organized Health Care Education/Training Program
DX: K85.90 Acute pancreatitis without necrosis or infection, unspecified (principal); R65.10 Systemic inflammatory response syndrome (SIRS) of non-infectious origin without acute organ dysfunction; K27.9 Peptic ulcer, site unspecified, unspecified as acute or chronic, without hemorrhage or perforation; E87.8 Other disorders of electrolyte and fluid balance, not elsewhere classified; R73.9 Hyperglycemia, unspecified; E78.5 Hyperlipidemia, unspecified; E83.41 Hypermagnesemia; I25.10 Atherosclerotic heart disease of native coronary artery without angina pectoris; G62.9 Polyneuropathy, unspecified; N18.30 Chronic kidney disease, stage 3 unspecified; Z88.2 Allergy status to sulfonamides; Z88.5 Allergy status to narcotic agent; Z88.8 Allergy status to other drugs, medicaments and biological substances; Z95.5 Presence of coronary angioplasty implant and graft; Z87.891 Personal history of nicotine dependence; Z82.49 Family history of ischemic heart disease and other diseases of the circulatory system; Z95.0 Presence of cardiac pacemaker; Z86.73 Personal history of transient ischemic attack (TIA), and cerebral infarction without residual deficits; Z79.899 Other long term (current) drug therapy

== ENCOUNTER 2021-03-17 14:54 | Emergency (ER) | payer OTHER ==
[~2021-03-17] VITALS: Ht 175.2 cm; Wt 86.2 kg
[2021-03-17 15:04] VITALS: BP 125/75
[2021-03-17] MEDS ORDERED: ASPIRIN CHEWABL81 MG PO (15:05)
[2021-03-17] MEDS ORDERED: MEGARED OMEGA-1 EAC2 PO (15:06)
[2021-03-17] MEDS ORDERED: HEARTBURN RELIE20 MG PO (15:07)
[2021-03-17] MEDS ORDERED: ENTRESTO 24 MG1 EACH PO (15:07)
[2021-03-17 16:12] LABS: BASO % 0.2 % (0.0-1.0); EOS # 0.3 10*3/uL (0.0-0.4); EOS % 1.7 % (1.0-4.0); HEMATOCRIT 44.7 % (42.0-52.0); LYMPH # 2.6 10*3/uL (1.3-4.4); LYMPH % 18.1 % (27.0-41.0); MEAN PLATELET VOLUME 10.3 fl (9.6-12.3); MONO # 1.5 10*3/uL (0.1-1.0); MONO % 9.9 % (3.0-9.0); NEUT % 68.1 % (47.0-73.0); PLATELET COUNT AUTOMATED 221 10*3/uL (130-400); RED BLOOD COUNT 4.91 10*6/uL (4.50-5.90); RED CELL DISTRI WIDTH 14.3 % (0-14.5); WHITE BLOOD COUNT 14.6 10*3/uL (4.8-10.8)
[2021-03-17 16:27] LABS: BUN 24 mg/dl (7-24); CHLORIDE 110 mmol/L (98-107); CREATININE 1.33 mg/dL (0.70-1.30); POTASSIUM 3.7 mmol/L (3.5-5.1); SODIUM 142 mmol/L (136-145)
== END 2021-03-17 18:49 | disposition admitted as inpatient to this hospital (09) ==
LOC: ED 14:54 → EDHOLD 18:11 → ED 18:49
PROVIDERS: Internal Medicine
DX: J18.9 Pneumonia, unspecified organism (principal)